=== PATIENT | male | born 1990 | race Caucasian/White ===

== ENCOUNTER 2023-09-10 00:01 | Emergency (ER) | payer OTHER ==
[~2023-09-10] VITALS: Ht 175.2 cm; Wt 78.0 kg
[~2023-09-10 00:01] MED LIST: DOXYCYCLINE MO100 MG PO; MOTRIN800 MG PO; PHENERGAN W/DM120 ML PO
[2023-09-10] MEDS ORDERED: Sulfamethoxazole/Trimethopri 1 TAB TAB PO ONE (00:20)
[2023-09-10] MEDS ORDERED: SEPTDS PO (00:20)
== END 2023-09-10 00:09 | disposition home or self-care (01) ==
LOC: ED 00:01
DX: L03.114 Cellulitis of left upper limb (principal); Z88.0 Allergy status to penicillin

== ENCOUNTER 2024-09-26 17:58 | Emergency (ER) | payer SELFPAY ==
[~2024-09-26] VITALS: Ht 177.8 cm; Wt 90.7 kg
[~2024-09-26 17:58] MED LIST changes: +SEPTDS PO
[2024-09-26 18:26] LABS: BILIRUBIN Negative (Negative); BLOOD Negative (Negative); CLARITY Clear (Clear); COLOR Yellow (Yellow); KETONE Negative (Negative); LEUKO ESTERASE Negative (Negative); NITRITE Negative (Negative); PH 7.5 (4.5-8.0); SPECIFIC GRAVITY 1.020 (1.001-1.030); UROBILINOGEN 1.0 E.U./dl (0.0-1.0)
[2024-09-26 18:34] LABS: URINE AMPHETAMINES Negative (1000ng/ml); URINE BARBITURATES Negative (200ng/ml); URINE BENZODIAZEPINES Negative (200ng/ml); URINE CANNABINOIDS (THC) Positive (50ng/ml); URINE COCAINE Negative (300ng/ml); URINE METHADONE Negative (300ng/ml); URINE OPIATES Negative (300ng/ml); URINE PHENCYCLIDINE Negative (25ng/ml)
[2024-09-26 18:40] LABS: EPITHELIAL CELLS 0-2; RBC 0-2 rbc/hpf (0-2); WBC 0-2 wbc/hpf (0-5)
[2024-09-26 18:43] LABS: BASO # 0.0 10*3/uL (0.0-0.1); BASO % 0.3 % (0.0-1.0); EOS # 0.1 10*3/uL (0.0-0.4); EOS % 0.9 % (1.0-4.0); MEAN CELL VOLUME 86.4 fl (80.0-94.0); MEAN CORPUSCULAR HGB 28.7 pg (27.0-31.0); MEAN PLATELET VOLUME 10.3 fl (9.6-12.3); MONO # 0.6 10*3/uL (0.1-1.0); MONO % 6.6 % (3.0-9.0); NEUT # 6.0 10*3/uL (2.3-7.9); NEUT % 64.2 % (47.0-73.0); NUCLEATED RED BLOOD CELL 0.0 % (0.0-0.0); NUCLEATED RED BLOOD CELL 0.0 10*3/uL (0.0-0.0); PLATELET COUNT AUTOMATED 316 10*3/uL (130-400); RED CELL DISTRI WIDTH 12.9 % (0-14.5)
[2024-09-26 19:13] LABS: BUN 12 mg/dl (9-23); ETHYL ALCOHOL 10.4 mg/dl (<3); SGPT/ALT 44 U/L (5-49)
[2024-09-26] MEDS ORDERED: LORazepam 1 MG TAB PO ONE (21:35)
== END 2024-09-26 21:52 | disposition home or self-care (01) ==
LOC: ED 17:58
PROVIDERS: Emergency Medicine
DX: R45.851 Suicidal ideations (principal); F10.90 Alcohol use, unspecified, uncomplicated; F41.9 Anxiety disorder, unspecified; F32.A Depression, unspecified; F12.90 Cannabis use, unspecified, uncomplicated; Z88.0 Allergy status to penicillin; Z20.822 Contact with and (suspected) exposure to COVID-19; Z79.899 Other long term (current) drug therapy; Y90.9 Presence of alcohol in blood, level not specified